=== PATIENT | female | born 1985 | race African-American/Black ===

== ENCOUNTER 2017-06-08 19:52 | Emergency (ER) | payer OTHER ==
[~2017-06-08] VITALS: Ht 160 cm; Wt 75.3 kg
[~2017-06-08 19:52] MED LIST: FLEXERIL PO; IBUPROFEN 600600 M1 PO; NOHOMEMEDICATIONS; VENTOLIN HFA 1818 GM INH
[2017-06-08] MEDS ORDERED: CELEXA20 MG PO (22:55)
== END 2017-06-09 01:43 | disposition home or self-care (01) ==
LOC: ER 19:52
DX: S01.81XA Laceration without foreign body of other part of head, initial encounter (principal); F17.210 Nicotine dependence, cigarettes, uncomplicated; Y04.0XXA Assault by unarmed brawl or fight, initial encounter; Y93.89 Activity, other specified; Y92.89 Other specified places as the place of occurrence of the external cause; Y99.8 Other external cause status

== ENCOUNTER 2018-04-08 13:09 | Emergency (ER) | payer OTHER ==
[~2018-04-08] VITALS: Ht 162.6 cm; Wt 82.6 kg
[~2018-04-08 13:09] MED LIST changes: +CELEXA20 MG PO
[2018-04-08 15:21] VITALS: BP 134/78
== END 2018-04-08 14:25 | disposition home or self-care (01) ==
LOC: ER 13:09
DX: H61.23 Impacted cerumen, bilateral (principal); F30.9 Manic episode, unspecified

== ENCOUNTER 2018-05-10 13:13 | Emergency (ER) | payer OTHER ==
[~2018-05-10] VITALS: Ht 162.6 cm; Wt 90.7 kg
[2018-05-10 13:43] LABS: URINE BILIRUBIN NEGATIVE (Negative); URINE BLOOD NEGATIVE (Negative); URINE CLARITY CLEAR; URINE COLOR YELLOW; URINE GLUCOSE-RANDOM* NEGATIVE (Negative); URINE KETONES NEGATIVE (Negative); URINE LEUKOCYTES-REFLEX 2+ (Negative); URINE NITRITE-REFLEX NEGATIVE (Negative); URINE PROTEIN (DIPSTICK) NEGATIVE (Negative); URINE UROBILINOGEN 0.2 E.U./dl (0.2-1.0)
[2018-05-10] MEDS ORDERED: CELEXA40 MG PO (13:44)
[2018-05-10 13:48] LABS: BACTERIA-REFLEX 1-9 Few /HPF (None Seen); CASTS None Seen /LPF (None Seen); CRYSTALS None Seen /LPF (None Seen); SQUAMOUS 4-10 Moderate /LPF (0-3); URINE RBC None Seen /HPF (0-2); URINE WBC-REFLEX 6-15 Few /HPF (0-5)
[2018-05-10] MEDS ORDERED: NEURONTIN 300300 M1 PO (13:57)
[2018-05-10] MEDS ORDERED: REMERON15 MG PO (13:57)
[2018-05-10] MEDS ORDERED: MINIPRESS1 MG PO (13:58)
[2018-05-10] MEDS ORDERED: CLARITIN10 MG PO (13:58)
[2018-05-10] MEDS ORDERED: REVIA 50 MG TAB50 MG PO (13:58)
[2018-05-10] MEDS ORDERED: QUETIAPINE FUM100 MG PO ×2 (13:59)
[2018-05-10] MEDS ORDERED: ATIVAN0.5 MG PO (14:00)
[2018-05-10] MEDS ORDERED: HYDROXYZINE HCL25 M1 PO (14:00)
[2018-05-10] MEDS ORDERED: TRAZODONE HCL50 MG PO (14:01)
[2018-05-10] MEDS ORDERED: AMBIEN 5 MG TABL5 M1 PO (14:01)
[2018-05-10 14:16] LABS: HEMATOCRIT 37.8 % (37.0-47.0); HEMOGLOBIN 12.5 gm/dL (12.0-15.0); MCH 27.1 pg (26.0-34.0); MCHC 33.2 g/dL (28.0-37.0); MCV 81.6 fL (80.0-100.0); RBC 4.63 mil/uL (4.20-5.00)
[2018-05-10 14:24] LABS: CALCIUM 9.3 mg/dL (8.5-10.1); CREATININE 1.2 mg/dL (0.6-1.0); POTASSIUM 3.9 mmol/L (3.5-5.1)
[2018-05-10] MEDS ORDERED: KEFLEX500 M1 PO (15:43)
[2018-05-10] MEDS ORDERED: NORCO 5-325 TA1 EACH PO (15:43)
[2018-05-10 16:09] VITALS: BP 131/72
--- NOTE | 2018-05-11 07:53 | EKG ---
[place] [address] [facility] [place] [address] ELECTROCARDIOGRAM REPORT Name: KARINE LOUIS Room #: [facility]#: [id number] Admission: 05/10/18 Attend Phys: Discharge: 05/10/18 Date of : 83 Report #: [id number] THIS REPORT FOR: //name// [facility] ED Test Date: 2018-05-10 Test Time: 13:39:05 Pat Name: KARINE LOUIS Department: Room: Gender: F Lead Manufacturing Technician: KM : 1985 Requested By: Concepcion Reich Order Number: [id number] MD: Chris Brian Measurements Intervals Freeman Rate: 87 P: 71 MD: 136 QRS: 12 QRSD: 91 T: 16 QT: 381 QTc: 459 Interpretive Statements Sinus rhythm RSR' in V1 or V2, right VCD Borderline T abnormalities, diffuse leads Compared to ECG 12/23/2014 03:13:34 T-wave abnormality now present Electronically Signed On 05-11-2018 7:52:52 [employer] by Chris Brian [email or web address] <ELECTRONICALLY SIGNED> By: Chris Brian MD, [facility] 05/11/18 [facility]2 [id number] Chris Brian MD, [facility] /EPI
== END 2018-05-10 16:15 | disposition home or self-care (01) ==
LOC: ER 13:13
PROVIDERS: Physician Assistant
DX: M54.5 Low back pain (principal); R51 Headache; M54.2 Cervicalgia; V89.2XXA Person injured in unspecified motor-vehicle accident, traffic, initial encounter; Y93.89 Activity, other specified; Y92.89 Other specified places as the place of occurrence of the external cause; Y99.8 Other external cause status; F32.9 Major depressive disorder, single episode, unspecified; F17.210 Nicotine dependence, cigarettes, uncomplicated